=== PATIENT | male | born 1960 | race Two or more races ===

== ENCOUNTER 2017-10-20 06:26 | Emergency (ER) | payer OTHER ==
[~2017-10-20] VITALS: Ht 177.8 cm; Wt 83.9 kg
[~2017-10-20 06:26] MED LIST: CELEXA20 MG; HUMIRA40 MG/0.8
[2017-10-20] MEDS ORDERED: ABILIFY2 MG (06:47)
[2017-10-20] MEDS ORDERED: PAXIL20 MG (06:47)
[2017-10-20] MEDS ORDERED: LAMICTAL5 MG (06:49)
== END 2017-10-20 10:22 | disposition home or self-care (01) ==
LOC: ER 06:26
DX: R53.81 Other malaise (principal); F06.4 Anxiety disorder due to known physiological condition

== ENCOUNTER 2018-02-01 06:15 | Emergency (ER) | payer OTHER ==
[~2018-02-01] VITALS: Ht 177.8 cm; Wt 86.2 kg
[~2018-02-01 06:15] MED LIST changes: +ABILIFY2 MG; +LAMICTAL5 MG; +PAXIL20 MG
[2018-02-01] MEDS ORDERED: OTEZLA30 MG (06:29)
[2018-02-01] MEDS ORDERED: ORASEP SPRAY30 ML MM (07:34)
== END 2018-02-01 08:35 | disposition home or self-care (01) ==
LOC: ER 06:15
DX: K12.0 Recurrent oral aphthae (principal)

== ENCOUNTER 2018-06-20 07:27 | Outpatient (CLI) | payer OTHER ==
[~2018-06-20 07:27] MED LIST changes: +ORASEP SPRAY30 ML MM; +OTEZLA30 MG
== END 2018-06-20 07:28 | disposition home or self-care (01) ==
LOC: RAD 07:27
DX: J22 Unspecified acute lower respiratory infection (principal)

== ENCOUNTER 2018-10-05 07:51 | Outpatient (CLI) | payer OTHER | END 2018-10-05 08:07 | disposition home or self-care (01) | LOC: NUCLEAR 07:51 | DX: I87.2 Venous insufficiency (chronic) (peripheral) (principal); R60.0 Localized edema ==

== ENCOUNTER → 2019-02-19 | Outpatient (CLI) | payer OTHER | END | disposition home or self-care (01) | LOC: RAD 07:54 | DX: M54.5 Low back pain (principal) ==

== ENCOUNTER → 2019-08-27 | Emergency (ER) | payer OTHER | END | disposition left against medical advice (07) | LOC: ER 05:45 | DX: Z53.20 Procedure and treatment not carried out because of patient's decision for unspecified reasons (principal) ==

== ENCOUNTER 2019-09-21 12:16 | Emergency (ER) | payer OTHER ==
[~2019-09-21] VITALS: Ht 177.8 cm; Wt 78.0 kg
[2019-10-03] MEDS ORDERED: LAMICTAL25 MG (15:11)
== END 2019-09-21 19:58 | disposition home or self-care (01) ==
LOC: ER 12:16
DX: M54.5 Low back pain (principal); R05 Cough; Z03.818 Encounter for observation for suspected exposure to other biological agents ruled out

== ENCOUNTER → 2019-09-24 | Emergency (ER) | payer OTHER ==
[~2019-09-24] MED LIST changes: +LAMICTAL25 MG
== END | disposition left against medical advice (07) ==
LOC: ER 06:22
DX: Z53.20 Procedure and treatment not carried out because of patient's decision for unspecified reasons (principal)

== ENCOUNTER → 2019-10-03 | Emergency (ER) | payer OTHER ==
[~2019-10-03] VITALS: Ht 177.8 cm; Wt 76.7 kg
== END | disposition left against medical advice (07) ==
LOC: ER 14:43
DX: Z53.20 Procedure and treatment not carried out because of patient's decision for unspecified reasons (principal)

== ENCOUNTER 2020-09-19 06:07 | Outpatient (CLI) | payer OTHER | END 2020-09-19 06:42 | disposition home or self-care (01) | LOC: LAB 06:07 | PROVIDERS: ATTEND Internal Medicine Rheumatology | DX: M46.1 Sacroiliitis, not elsewhere classified (principal); M15.8 Other polyosteoarthritis; L40.59 Other psoriatic arthropathy; E78.49 Other hyperlipidemia; M45.8 Ankylosing spondylitis sacral and sacrococcygeal region ==

== ENCOUNTER 2020-12-07 19:23 | Emergency (ER) | payer OTHER ==
[~2020-12-07] VITALS: Ht 180.3 cm; Wt 84.8 kg
[2020-12-07] MEDS ORDERED: OTEZLA30 MG PO (19:33)
== END 2020-12-07 23:33 | disposition home or self-care (01) ==
LOC: ER 19:23
DX: R59.0 Localized enlarged lymph nodes (principal)
CPT/HCPCS: 71260; Q9965

== ENCOUNTER → 2021-03-10 | Emergency (ER) | payer OTHER ==
[~2021-03-10] VITALS: Ht 177.8 cm; Wt 83.9 kg
[~2021-03-10] MED LIST changes: +OTEZLA30 MG PO
== END | disposition home or self-care (01) ==
LOC: ER 04:13
DX: M25.512 Pain in left shoulder (principal); W06.XXXA Fall from bed, initial encounter; Y93.84 Activity, sleeping; Y92.013 Bedroom of single-family (private) house as the place of occurrence of the external cause; Y99.9 Unspecified external cause status

== ENCOUNTER 2021-03-18 08:37 | Emergency (ER) | payer OTHER ==
[~2021-03-18] VITALS: Ht 177.8 cm; Wt 83.9 kg
[2021-03-18] MEDS ORDERED: KETO10TA2 PO (10:12)
[2021-03-18] MEDS ORDERED: NORFLEX100MG PO (10:12)
== END 2021-03-18 11:32 | disposition home or self-care (01) ==
LOC: ER 08:37
DX: S29.9XXA Unspecified injury of thorax, initial encounter (principal); M25.512 Pain in left shoulder; W18.30XA Fall on same level, unspecified, initial encounter; Y93.9 Activity, unspecified; Y92.9 Unspecified place or not applicable; Y99.9 Unspecified external cause status

== ENCOUNTER → 2022-07-13 | Outpatient (CLI) | payer OTHER ==
[~2022-07-13] MED LIST changes: +KETO10TA2 PO; +NORFLEX100MG PO
== END | disposition home or self-care (01) ==
LOC: RAD 10:39
PROVIDERS: ATTEND Internal Medicine
DX: T14.90XA Injury, unspecified, initial encounter (principal)

== ENCOUNTER → 2022-08-05 | Outpatient (CLI) | payer OTHER | END | disposition home or self-care (01) | LOC: NUCLEAR 08-02 13:15 | PROVIDERS: ATTEND Orthopaedic Surgery | DX: M81.0 Age-related osteoporosis without current pathological fracture (principal) ==

== ENCOUNTER 2023-01-10 09:29 | Outpatient (CLI) | payer OTHER | END 2023-01-10 09:41 | disposition home or self-care (01) | LOC: RAD 09:29 | PROVIDERS: ATTEND Orthopaedic Surgery | DX: M25.511 Pain in right shoulder (principal); M25.522 Pain in left elbow; S50.02XA Contusion of left elbow, initial encounter ==

== ENCOUNTER 2023-02-17 09:49 | Outpatient (CLI) | payer OTHER | END 2023-02-17 13:39 | disposition home or self-care (01) | LOC: LAB 09:49 | PROVIDERS: ATTEND Orthopaedic Surgery | DX: E55.9 Vitamin D deficiency, unspecified (principal); M85.9 Disorder of bone density and structure, unspecified; E56.1 Deficiency of vitamin K ==

== ENCOUNTER 2023-03-03 08:36 | Outpatient (CLI) | payer OTHER | END 2023-03-03 08:43 | disposition home or self-care (01) | LOC: RAD 08:36 | PROVIDERS: ATTEND Orthopaedic Surgery | DX: M25.511 Pain in right shoulder (principal); M25.522 Pain in left elbow ==

== ENCOUNTER 2024-04-10 09:12 | Outpatient (CLI) | payer OTHER | END 2024-04-10 09:16 | disposition home or self-care (01) | LOC: SONOGRAMA 09:12 | PROVIDERS: ATTEND Internal Medicine | DX: N18.31 Chronic kidney disease, stage 3a (principal) ==

== ENCOUNTER 2024-06-11 09:18 | Outpatient (CLI) | payer OTHER | END 2024-06-11 09:31 | disposition home or self-care (01) | LOC: MRI 09:18 | PROVIDERS: ATTEND Neuromusculoskeletal Medicine & OMM | DX: G47.52 REM sleep behavior disorder (principal) | CPT/HCPCS: 70553; Q9965 ==

== ENCOUNTER 2024-10-15 08:14 | Outpatient (CLI) | payer OTHER | END 2024-10-15 08:18 | disposition home or self-care (01) | LOC: NUCLEAR 08:14 | PROVIDERS: ATTEND Internal Medicine | DX: I87.2 Venous insufficiency (chronic) (peripheral) (principal); I70.0 Atherosclerosis of aorta ==

== ENCOUNTER 2024-12-13 10:09 | Outpatient (CLI) | payer OTHER | END 2024-12-13 10:11 | disposition home or self-care (01) | LOC: RAD 10:09 | PROVIDERS: ATTEND Specialist | DX: J45.22 Mild intermittent asthma with status asthmaticus (principal); R00.2 Palpitations ==